=== PATIENT | female | born 1970 | race African-American/Black ===

== ENCOUNTER 2018-02-27 18:35 | Observation (INO) | payer BC, OTHER ==
[~2018-02-27 18:35] MED LIST: ISOVUE-370 76%-LOCM 1 ML ONE
[2018-02-27 19:05] LABS: #Eosinphils 0.1 thou/uL (0.0-0.7); #Lymphocytes 2.2 thou/uL (1.20-3.40); #Monocytes 0.3 thou/uL (0.11-0.59); #Neutrophils 2.5 thou/uL (1.40-6.50); %Basophils 0.7 % (0.0-1.0); %Eosinophils 1.8 % (0.0-10.0); %Lymphocytes 42.4 % (21.0-51.0); %Monocytes 6.5 % (0.0-10.0); %Neutrophils 48.6 % (42.0-75.0); Hemoglobin 13.6 g/dL (12.0-16.0); Mean Corpuscular HGB CONC 31.9 g/dL (32.0-36.0); Mean Corpuscular Hemoglobin 26.9 pg (27.0-31.0); Mean Corpuscular Volume 84.6 fl (81.0-99.0); Mean Platelet Volume 8.3 fL (7.4-10.4); Platelet Count 219 thou/uL (130-400); RBC Distribution Width 12.6 % (11.5-14.5); Red Blood Cell (RBC) Count 5.06 mill/uL (4.20-5.40); White Blood Cell (WBC) Count 5.1 thou/uL (4.8-10.8)
[2018-02-27 19:26] LABS: ALT (SGPT) 46 U/L (8-55); AST (SGOT) 25 U/L (5-34); Albumin 4.1 g/dL (3.5-5.0); Alkaline Phosphatase 182 U/L (40-150); Anion Gap 13 mmol/L (10-20); BUN (Urea Nitrogen) 10 mg/dL (7.0-18.7); Bilirubin, Total 0.2 mg/dL (0.2-1.2); CK (CPK) 145 U/L (29-168); Calc. Creatinine Clearance 0 mL/min (70-130); Calcium 9.5 mg/dL (7.8-10.44); Carbon Dioxide 25 mmol/L (22-29); Chloride 103 mmol/L (98-107); Estimated GFR-MDRD 64; Globulin 3.6 g/dL (2.4-3.5); Glucose 359 mg/dL (70-105); Protein, Total 7.7 g/dL (6.0-8.3); Sodium 137 mmol/L (136-145)
[2018-02-27 19:30] LABS: CKMB 0.7 ng/mL (0-6.6); Troponin I Less than 0.010 ng/mL (< 0.028)
[2018-02-27] MEDS ORDERED: Clopidogrel Bisulfate 75 MG TAB ONE (21:03)
[2018-02-27] MEDS ORDERED: Nitroglycerin 2% Ointment 1 INCH/1 GM Packet ONE (21:03)
--- NOTE | 2018-02-27 23:08 | CT ---
CT ANGIOGRAM THORAX WITH IV CONTRAST AND 3D RECONSTRUCTION 02/27/18 HISTORY: Sudden onset of chest pain with nausea and shortness of breath. COMPARISON: 12/07/16. FINDINGS: No filling defects are seen in the pulmonary arteries to suggest a pulmonary embolus. The thoracic ao rta is normal in caliber without evidence of an aortic dissection. The heart is mildly enlarged. There is no evidence of lymphadenopathy. There is a subcentimeter hypodense nodule seen in the left lobe of the thyroid gland. This is also se en on the prior study, less well delineated. However, this was better visualized on study of 04/30/15. There are ground glass densities in the lungs bilaterally, but this exam is obtained in expiratory ph ase of imaging and this is probably related to atelectasis. There is a stable subcentimeter pulmonary nodule in the right lower lobe. No additional pulmonary nodule or mass is seen and there is no pleur al effusion. Present. There is fatty infiltration of the liver, also seen on prior exam. The craniocaudal dimensions of the liver is not imaged. Post cholecystectomy changes are present. IMPRESSION: 1. No CT evidence of a pulmonary embolus. 2. Mild cardiomegaly. 3. Fatty infiltration of the liver. 4. Stable pulmonary nodule right lower lobe. 5. Stable hypodense nodule left lobe of the thyroid gland incompletely imaged on this exam. This nodule is less well delineated on the prior study. Nonemergent thyroid ultrasound may be helpful for further evaluation. POS: PB
[2018-02-27] MEDS ORDERED: Acetaminophen 500 MG TAB ONE (23:29)
[2018-02-28 00:19] LABS: Troponin I Less than 0.010 ng/mL (< 0.028)
[2018-02-28 00:38] VITALS: BMI 40.2
[2018-02-28] MEDS ORDERED: Ondansetron ODT 4 MG TAB SL PRN (00:53)
[2018-02-28] MEDS ORDERED: Ondansetron HCl/PF 4 MG/2 ML Vial IVP PRN (00:53)
[2018-02-28 03:18] LABS: Troponin I 0.018 ng/mL (< 0.028)
[2018-02-28 08:35] VITALS: BP 118/79; TEMP 98.4
--- NOTE | 2018-03-01 11:27 | HP ---
PRIMARY CARE PHYSICIAN: Dr. Kam Edmond. REASON FOR SEEKING MEDICAL ATTENTION: Chest pain. HISTORY OF PRESENT ILLNESS: Ms. Cramer is a pleasant 47-year-old female that has a history of diabet es mellitus and paroxysmal atrial fibrillation. She says that on yesterday afternoon, she was at wor k and just sitting, not doing anything strenuous when she suddenly felt a heavy sensation in her ches t. She says it was associated with some shortness of breath. She felt like she could not breathe an d she says she rated the pain about 8.5/10. It lasted about 3-4 minutes and then went away. It was coming and going and she says she also felt that her left arm was hurting. She felt that her arm was a little bit numb and was nauseated and she initially said to the ER physician that she vomited, but she tells me she did not relieve vomit, it came again later on that evening and she says that she ju st did not feel right in her chest and wanted to come in to see what was "going on." Currently, she is chest pain free. She was seen in the emergency room, she had a CT angiogram of the chest, which w as negative. She has also had 3 sets of cardiac enzymes, which are negative and was placed in observ ation. REVIEW OF SYSTEMS: CONSTITUTIONAL: There has been no fevers, no chills, no night sweats, no weight loss. HEENT: No headaches, no dizziness, no visual changes, no sore throat, no rhinorrhea, neck pain, no a denopathy. PULMONARY: No hemoptysis, no cough, no wheezing. CARDIOVASCULAR: As at the history of present illness. GASTROINTESTINAL: No abdominal pain, no nausea. She denies any reflux symptoms, no melena, no hemat emesis. GENITOURINARY: No urinary frequency, hematuria, no hesitancy. NEUROLOGIC: No focal weakness, numbness, no seizures. PSYCHIATRIC: No symptoms of anxiety or depression. SKIN AND INTEGUMENT: No skin changes. No rash. PAST MEDICAL HISTORY: Significant for obesity, diabetes mellitus. She denies hypertension, although it is in her records and has history of paroxysmal atrial fibrillation. PAST SURGICAL HISTORY: She has had left foot surgery, cholecystectomy, and appendectomy. ALLERGIES: HYDROCODONE, REGLAN, PENICILLIN, COMPAZINE, TRAMADOL, and ZOFRAN. SOCIAL HISTORY: She is . She has 3 children. She is a nonsmoker, nondrinker. FAMILY HISTORY: Significant for congestive heart failure, diabetes, and hypercholesterolemia. MEDICATIONS: Include Lasix 20 mg twice a day, Nexium 40 mg daily, diltiazem CD 240 mg twice a day, a spirin 81 mg daily, daily, potassium chloride 10 mEq daily, Nitrostat 0.4 sublingual p.r.n., J anumet 1 tablet twice a day and that is 50/500, metoprolol 100 mg twice daily, isosorbide mononitrate 10 mg daily, ProAir 2 puffs q.6 hours as needed, glimepiride 1 mg q. day, venlafaxine 75 mg daily, Z ocor 20 mg daily, and Protonix 40 mg a day. PHYSICAL EXAMINATION: GENERAL: She is well-developed and well-nourished. She is in no acute distress. VITAL SIGNS: Her blood pressure was 110/67, heart rate 78, respiratory rate of 18, temperature 97.8, and O2 sat was 95% on room air. HEENT: Pupils are equal, round, and reactive. Extraocular muscles are intact. Her sclerae are anic teric. Her throat, there is no erythema, no exudate. Uvula is midline. NECK: There is no adenopathy, no bruits. LUNGS: Clear to auscultation. There were no wheezing, no rales, no rhonchi. CARDIOVASCULAR: She had a normal S1, S2. I did not appreciate an S3 or S4. No murmurs, clicks, no rubs. ABDOMEN: Obese, it is soft. There was some mild diffuse tenderness. There is no rebound, no guardi ng, and could not appreciate any organomegaly. EXTREMITIES: There is no clubbing, cyanosis, no edema. NEUROLOGICALLY: Her exam is nonfocal. Her cranial nerves II-XII are intact. Muscle strength is 5/5 in both her upper and lower extremities. SIGNIFICANT LABORATORY RESULTS: Sodium was 137, potassium 4.0, chloride is 103, CO2 is 25, BUN of 10 , creatinine 1.1, glucose is 359, alkaline phosphatase is 182. Troponins were less than 0.010, lipas e is 96. White blood cell count 5.1, hemoglobin 13.6, hematocrit is 42.8, platelet count is 219. Sh vic had an EKG, which was sinus rhythm. She had a Q-wave inferiorly in leads III and AVF; however, it is unchanged from prior EKG dated 12/07/2016 and again she had a CT angiogram of the chest, which was negative for PE. ASSESSMENT AND PLAN: This is a pleasant 47-year-old female that presents to the emergency room with atypical chest pain. She has had 3 sets of troponins, which are negative. A CT angio which was nega tive. In review of her medical records, it appears that she has been to the hospital on numerous occ asions for chest pain in the past, dating back as far as 3 years ago in 2014. At that time, she had a nuclear stress test, which was negative. The following year, she had a cardiac catheterization by Dr. Concepcion, which was negative for any coronary artery disease. Following that, she had a pulmonary perfusion test in 01/2016, which was also negative. She had a recent echocardiogram in November 2016, which was essentially normal. Given that she has had an extensive workup in the past. I do not fee l that any additional workup is necessary at this time and it is unlikely that her chest pain is rela tawny to coronary artery disease. Also, pulmonary embolism has been ruled out as well. The patient lo oks relatively stable. She is sitting up in bed and she is basically in no acute distress. Her cee l signs are all stable. I discussed with her that they are likely alternative explanations for her c hest pain, possibly musculoskeletal in origin and she could have diabetic neuropathy or radiculopathy . However, these can be worked up in the outpatient basis and I have encouraged her to discuss this with her primary care physician. Therefore, we are going to go ahead and discharge the patient and t here is no need for any additional workup in the hospital and refer her to the care of her primary ca re physician.
== END 2018-02-28 11:25 | disposition home or self-care (01) ==
LOC: ERS 18:35 → 2NO 02-28 00:19
PROVIDERS: ADMIT Internal Medicine; ATTEND Internal Medicine
DX: R07.89 Other chest pain (principal); E11.9 Type 2 diabetes mellitus without complications; I48.0 Paroxysmal atrial fibrillation; Z79.82 Long term (current) use of aspirin; Z79.84 Long term (current) use of oral hypoglycemic drugs; Z79.899 Other long term (current) drug therapy; Z88.5 Allergy status to narcotic agent; Z88.0 Allergy status to penicillin; Z88.8 Allergy status to other drugs, medicaments and biological substances; Z90.49 Acquired absence of other specified parts of digestive tract; Z98.890 Other specified postprocedural states
CPT/HCPCS: 36415; 71275; 80053; 82550; 82553; 83690; 83880; 84484; 85025; 93005; 94760; G0378

== ENCOUNTER 2019-07-24 20:52 | Observation (INO) | payer BC ==
--- NOTE | 2019-07-24 21:30 | RAD ---
PORTABLE CHEST ONE VIEW: 07/24/19 at 8:47 p.m. HISTORY: Chest pain. Atrial fibrillation. FINDINGS: Comparison is made with the exam of 12/07/16. The heart size is normal. No confluent areas of consolidation, pneumothoraces, salvador pulmonary edema or pleural effusions are seen. IMPRESSION: No acute process. POS: H
[2019-07-24 21:38] LABS: Hemoglobin 13.5 g/dL (12.0-16.0); Mean Corpuscular Volume 81.9 fL (78.0-98.0); Mean Platelet Volume 8.6 fL (7.4-10.4); Platelet Count 222 thou/uL (130-400); RBC Distribution Width 12.4 % (11.5-14.5); Red Blood Cell (RBC) Count 5.01 mill/uL (4.20-5.40); White Blood Cell (WBC) Count 5.5 thou/uL (4.8-10.8)
[2019-07-24 21:54] LABS: Eosinophils 2 % (0-10); Lymphocytes 53 % (21-51); MDiff Complete? YES; Monocytes 4 % (0-10); Neutrophil 41 % (42-75)
[2019-07-24 21:58] LABS: ALT (SGPT) 43 U/L (8-55); AST (SGOT) 16 U/L (5-34); Alkaline Phosphatase 144 U/L (40-150); Anion Gap 13 mmol/L (10-20); BUN (Urea Nitrogen) 16 mg/dL (7.0-18.7); Bilirubin, Total 0.2 mg/dL (0.2-1.2); Calc. Creatinine Clearance 0 mL/min (70-130); Calcium 9.6 mg/dL (7.8-10.44); Carbon Dioxide 22 mmol/L (22-29); Chloride 103 mmol/L (98-107); Estimated GFR-MDRD 81; Globulin 3.1 g/dL (2.4-3.5); Glucose 373 mg/dL (70-105); Protein, Total 7.1 g/dL (6.0-8.3); Sodium 134 mmol/L (136-145)
[2019-07-24] MEDS ORDERED: Acetaminophen 500 MG TAB ONE (22:00)
[2019-07-24] MEDS ORDERED: Promethazine HCl 25 MG/ML VIAL ONE (22:17)
[2019-07-24] MEDS ORDERED: Insulin Regular 300 UNITS/3 ML VIAL ONE (22:36)
[2019-07-24] MEDS ORDERED: Aspirin Chewable 81 MG TAB ONE (22:36)
[2019-07-24 22:42] LABS: Bilirubin Negative (Negative); Blood, Urine Negative (Negative); Clarity Clear (Clear); Glucose, Urine (Dipstick) Greater than 1000 mg/dL (Negative); Leukocyte Negative Leu/uL (Negative); Nitrite Negative (Negative); Protein, Urine (Dipstick) Negative (Neg-Trace); Urobilinogen Normal mg/dL (Less than 2)
[2019-07-25 01:21] LABS: Troponin I Less than 0.010 ng/mL (< 0.028)
[2019-07-25] MEDS ORDERED: Dextrose 50% Abboject 50 ML SYRINGE SLOW IVP PRN (01:29)
[2019-07-25] MEDS ORDERED: Acetaminophen 325 MG TAB PO PRN (01:29)
[2019-07-25] MEDS ORDERED: hydrALAZINE 20 MG/ML VIAL SLOW IVP PRN (01:29)
[2019-07-25] MEDS ORDERED: HumaLOG 300 UNITS/3 ML VIAL SC PRN (01:29)
[2019-07-25] MEDS ORDERED: Dextrose 5% in Water 1,000 ML IV PRN (01:29)
[2019-07-25] MEDS: Nitroglycerin 0.4 MG TAB (25 Tab Bottle) PO PRN ×2 (02:26→02:33)
[2019-07-25] MEDS: Morphine 4 MG/ML VIAL SLOW IVP PRN ×2 (03:18→21:13)
--- NOTE | 2019-07-25 04:21 | HP ---
PRIMARY CARE PHYSICIAN: Dr. Vika Edmond in [place]. CHIEF COMPLAINT: Chest pain. HISTORY OF PRESENT ILLNESS: Ms. Cramer is a pleasant 48-year-old female who has a history of paroxysmal atrial fibrillation and diabetes mellitus. She says that she has been having problems with her heart racing off and on. She believes she is going "in and out" of atrial fibrillation. She says that it has been more frequent lately and in the last few days, she will have these episodes where her heart beats irregular for 3 to 4 hours at a time. During this time, she says she feels faint and she will have a heaviness in her chest. It feels like a weight is on her chest and it takes her breath away. She says that these are becoming more persistent and more frequent and this is the reason that she came to the emergency room. She also notes some nausea and vomiting along with these episodes. However, sometimes she will have the nausea and vomiting without it, but she attributes this to diabetes mellitus. In the ER, she was evaluated and found to be in sinus tachycardia. However, she is being placed in observation. The patient denies any leg pain, but she does have some tingling. No leg swelling. No PND. No orthopnea. REVIEW OF SYSTEMS: CONSTITUTIONAL: There is no fevers or chills. No night sweats. No weight loss. HEENT: No headaches. No dizziness. No visual changes. No sore throat or rhinorrhea. No neck pain. No adenopathy. PULMONARY: No hemoptysis. No cough. No wheezing. CARDIOVASCULAR: As the History of Present Illness. GASTROINTESTINAL: No abdominal pain, but she has had nausea and vomiting off and on. No hematemesis. No melena. GENITOURINARY: No urinary frequency or hematuria. No hesitancy. MUSCULOSKELETAL: She complains of some tingling in her feet, but no salvador pain. No numbness. No joint pains or effusions. NEUROLOGIC: No focal weakness. No seizures. SKIN AND INTEGUMENT: No skin changes. No rash. PSYCHIATRIC: No symptoms of anxiety or depression. PAST MEDICAL HISTORY: Significant for diabetes mellitus, obesity, paroxysmal atrial fibrillation, and neuropathy. PAST SURGICAL HISTORY: She has had a cholecystectomy, appendectomy, foot surgery, and bilateral tubal ligation. ALLERGIES: TO PENICILLIN, HYDROCODONE, REGLAN, COMPAZINE, TRAMADOL, AND ZOFRAN; ALL OF WHICH CAUSED HER EITHER ITCHING OR RASHES. SOCIAL HISTORY: She is . She has 3 children. She is a nonsmoker. She denies any alcohol use. FAMILY HISTORY: Significant for diabetes mellitus as well as congestive heart failure. MEDICATIONS: Include; 1. Simvastatin 20 mg daily. 2. Aspirin 81 mg daily. 3. Nitrostat 0.4 sublingual. 4. Cardizem 120 mg daily. 5. Metoprolol extended release 100 mg daily. 6. Ranexa 1000 mg twice a day. PHYSICAL EXAMINATION: GENERAL: She is alert and oriented. She appears to be in no acute distress. She is well developed and well nourished. VITAL SIGNS: Blood pressure is 125/86, heart rate 101, respiratory rate of 20, and temperature is 99.1. HEENT: Her pupils are equal, round, and reactive to light. Extraocular muscles are intact. Her sclerae are anicteric. Throat, no erythema, no exudates. NECK: No adenopathy. No bruits. LUNGS: Clear to auscultation. There is no wheezing, no rales, no rhonchi. CARDIOVASCULAR: She has normal S1, S2. There is no S3 or S4. No murmurs or clicks, no rubs. ABDOMEN: Obese, it is soft, it is nontender, and nondistended. Positive for bowel sounds. There is no rebound, no guarding, no organomegaly. EXTREMITIES: There is no clubbing or cyanosis. No edema. No calf tenderness. No joint effusions. NEUROLOGIC: Cranial nerves 2 through 12 are intact. Muscle strength is 5/5 in both upper and lower extremities. SKIN AND INTEGUMENT: No skin changes. No rashes. Dorsalis pedis pulses are palpable, but little bit diminished on the left as compared to the right. Again, no skin lesions. LABORATORY DATA AND IMAGING: Her chest x-ray; there were no infiltrates, no effusions. Heart size appears normal. This is by my reading. EKG is sinus rhythm. She has some Q-waves in III and aVF, and it is sinus tachycardia, heart rate is about 106, also by my reading. Sodium is 134, potassium four, chloride is 103, CO2 is 22, BUN of 16, creatinine 0.91, glucose is 373. White blood cell count 5.5, hemoglobin 13.5, hematocrit is 41, platelet count is 222. ASSESSMENT: 1. This is a pleasant 48-year-old female who has a history of paroxysmal atrial fibrillation, who says that she believes she has been going in and out of atrial fibrillation more frequently and is symptomatic with this. She is not on anticoagulation and she is really not sure why. She has diabetes and with her gender, this would give her a CHADS-VASc score of 2 in which case she would be a candidate for anticoagulation. 2. With regard to the atrial fibrillation, currently she is converted back to sinus. We will place her on Lovenox full dose at least through the night. Consult Cardiology. Get an echocardiogram and further recommendations will be based on Cardiology recommendations. 3. Diabetes mellitus. We will need to reconcile and continue her home medications as well as a sliding scale insulin and she will be placed on gastrointestinal prophylaxis due to the anticoagulation. Job ID: [id number]
[2019-07-25 04:24] LABS: Anion Gap 13 mmol/L (10-20); BUN (Urea Nitrogen) 16 mg/dL (7.0-18.7); Calc. Creatinine Clearance 150 mL/min (70-130); Calcium 8.8 mg/dL (7.8-10.44); Carbon Dioxide 22 mmol/L (22-29); Cardiac Risk 6.5 (Less than 4.5); Chloride 104 mmol/L (98-107); Cholesterol 194 mg/dl (< 200 Desired); Estimated GFR-MDRD Greater than 90; Glucose 305 mg/dL (70-105); HDL Cholesterol 30 mg/dL (>60 Neg Risk); LDL Cholesterol, Calculated 119 mg/dL; Sodium 135 mmol/L (136-145); Triglycerides 224 mg/dL (Less than 150)
[2019-07-25 04:26] LABS: Troponin I 0.011 ng/mL (< 0.028)
[2019-07-25 04:37] LABS: Band 1 % (5-11); Eosinophils 1 % (0-10); Hemoglobin 12.7 g/dL (12.0-16.0); Lymphocytes 52 % (21-51); MDiff Complete? YES; Mean Corpuscular HGB CONC 32.8 g/dL (32.0-36.0); Mean Corpuscular Hemoglobin 27.1 pg (27.0-31.0); Mean Corpuscular Volume 82.8 fL (78.0-98.0); Mean Platelet Volume 8.4 fL (7.4-10.4); Monocytes 8 % (0-10); Neutrophil 37 % (42-75); Platelet Count 193 thou/uL (130-400); Platelet Morphology Comment Appears Adequate; RBC Distribution Width 12.5 % (11.5-14.5); Reactive Lymphocytes 1 % (0-10); Red Blood Cell (RBC) Count 4.67 mill/uL (4.20-5.40); White Blood Cell (WBC) Count 5.7 thou/uL (4.8-10.8)
[2019-07-25] MEDS: Nitroglycerin 2% Ointment 1 INCH/1 GM Packet TOP SCH ×2 (05:18→15:18)
[2019-07-25 05:34] LABS: Free T4 (Free Thyroxine) 0.93 ng/dL (0.70-1.48)
[2019-07-25] MEDS: HumaLOG 300 UNITS/3 ML VIAL SC PRN ×2 (06:04→19:33)
[2019-07-25] MEDS ORDERED: Regadenoson 0.4 MG/5 ML SYRINGE ONE (07:20)
[2019-07-25] MEDS: Aspirin 81 mg Enteric Coated Tablet PO SCH (09:31)
[2019-07-25] MEDS: Simvastatin 20 MG TAB PO SCH (09:32)
[2019-07-25] MEDS: Famotidine 20 MG TAB PO SCH ×2 (09:32→21:04)
[2019-07-25] MEDS: Enoxaparin Sodium 100 MG/ML SYRINGE SC SCH ×2 (09:32→21:05)
[2019-07-25] MEDS: Potassium Chloride 10 MEQ TAB PO SCH (09:32)
[2019-07-25] MEDS: Furosemide 20 MG TAB PO SCH ×2 (09:32→21:04)
--- NOTE | 2019-07-25 11:55 | PDOC.HOSPP ---
- Subjective Encounter Date: 07/25/19 Encounter Time: 09:00 Subjective: no current chest pain or palp is ambulating in room - Objective Vital Signs & Weight: Vital Signs (12 hours) Temp Pulse Resp BP BP Pulse Ox 07/25/19 11:27 86 129/76 07/25/19 11:00 98.0 F 82 16 95/60 95 07/25/19 07:55 97.9 F 82 16 110/55 L 95 07/25/19 03:48 98.5 F 97 15 117/58 L 95 07/25/19 02:38 112/67 07/25/19 02:33 112/65 07/25/19 02:26 119/67 07/25/19 01:29 95 07/25/19 01:18 98.8 F 88 18 114/62 98 Weight Weight 225 lb 12.8 oz Result Diagrams: 07/25/19 03:49 07/25/19 03:49 Additional Labs: Accuchecks 07/25/19 07/25/19 07/25/19 10:31 05:53 00:56 POC Glucose 253 H 341 H 290 H Hospitalist ROS - Medication Medications: Active Medications Generic Name Dose Route Start Last Admin Trade Name Freq PRN Reason Stop Dose Admin Acetaminophen 650 mg 07/25/19 01:29 07/25/19 02:35 Tylenol PO 650 mg Q4H PRN Administration Headache/Fever/Mild Pain (1-3) Aspirin 81 mg 07/25/19 09:00 07/25/19 09:31 Ecotrin PO 81 mg DAILY JUANJO Administration Enoxaparin Sodium 100 mg 07/25/19 09:00 07/25/19 09:32 Lovenox SC 100 mg 0900,2100 JUANJO Administration Famotidine 20 mg 07/25/19 09:00 07/25/19 09:32 Pepcid PO 20 mg BID JUANJO Administration Furosemide 20 mg 07/25/19 09:00 07/25/19 09:32 Lasix PO 20 mg BID JUANJO Administration Insulin Human Lispro 0 units 07/25/19 01:29 07/25/19 06:04 Humalog SC 8 unit .MODERATE SLIDING SC PRN Administration Moderate Correctional Scale Morphine Sulfate 4 mg 07/25/19 03:01 07/25/19 03:18 Morphine SLOW IVP 4 mg Q4H PRN Administration Severe Pain (6-10) Nitroglycerin 0.5 inch 07/25/19 06:00 07/25/19 05:18 Nitro-Bid 2% Ointment TOP Not Given Q8HR [facility] Nitroglycerin 0.4 mg 07/25/19 01:29 07/25/19 02:33 Nitrostat PO 1 tab Q5MIN PRN Administration Chest Pain Potassium Chloride 10 meq 07/25/19 09:00 07/25/19 09:32 Klor-Con 10 PO 10 meq DAILY JUANJO Administration Simvastatin 20 mg 07/25/19 09:00 07/25/19 09:32 Zocor PO 20 mg DAILY JUANJO Administration - Exam General Appearance: NAD, awake alert Eye: PERRL, anicteric sclera ENT: no oropharyngeal lesions, moist mucosa Neck: supple, no JVD Heart: RRR, no murmur Respiratory: no wheezes, no rales Gastrointestinal: soft, non-tender, non-distended, normal bowel sounds Extremities: no clubbing, no edema Neurological: CN's grossly intact, no focal deficits Psychiatric: A&O x 3 Hosp A/P (1) Palpitations Code(s): R00.2 - PALPITATIONS Status: Acute (2) Chest pain Code(s): R07.9 - CHEST PAIN, UNSPECIFIED Status: Acute Qualifiers: Chest pain type: unspecified Qualified Code(s): R07.9 - Chest pain, unspecified (3) DM type 2 (diabetes mellitus, type 2) Status: Chronic Qualifiers: Diabetes mellitus mcc insulin use: with mcc use (4) Hypertension Code(s): I10 - ESSENTIAL (PRIMARY) HYPERTENSION Status: Chronic Qualifiers: Hypertension type: essential hypertension Qualified Code(s): I10 - Essential (primary) hypertension (5) Obesity Code(s): E66.9 - OBESITY, UNSPECIFIED Status: Chronic Qualifiers: Obesity classification: adult class 2 (BMI 35 - 39.9) Body mass index: BMI 38.0-38.9 (6) Paroxysmal a-fib Code(s): I48.0 - PAROXYSMAL ATRIAL FIBRILLATION Status: Chronic - Plan is in sinus rhythm all through here has subjective feeling of palpitations likely will need event monitor for dc plan continue card cd bid, lopressor bid, lasix, ranexa, zocor and isordil is on lovenox full dose, may switch to noac if ok with cardio dc plan per cardio adv.
[2019-07-25] MEDS: Isosorbide Dinitrate 5 MG TAB PO SCH (11:57)
[2019-07-25] MEDS: Metoprolol Tartrate 50 MG TAB PO SCH ×2 (11:57→21:04)
[2019-07-25] MEDS ORDERED: Promethazine HCl 25 MG/ML VIAL SLOW IVP SCH (12:30)
[2019-07-25] MEDS: Morphine 2 MG/ML SYRINGE SLOW IVP PRN (12:37)
[2019-07-25] MEDS ORDERED: Promethazine HCl 12.5 MG in Sodium Chloride 0.9% 50 ML IVPB SCH (12:45)
--- NOTE | 2019-07-25 13:18 | CON ---
DATE OF CONSULTATION: HISTORY OF PRESENT ILLNESS: The patient is a 48-year-old woman with a history of apparent atrial fibrillation, who presented with palpitations and chest discomfort. The patient was seen approximately 3 years ago with chest pain. She underwent a cardiac catheterization,which revealed normal left ventricular systolic function with normal coronary arteries. The patient has been followed primarily by a slat basket maker helper in [place]. She has apparently been diagnosed with atrial fibrillation. She was being treated with aspirin and metoprolol. The patient states she continues to have frequent episodes of atrial fibrillation. She reports with these palpitations that she develops midsternal chest discomfort. The patient presented to the hospital with recurrent chest pain. She was not in atrial fibrillation. She felt a severe tightness in the middle of her chest. The patient states that these episodes are often associated with nausea. PAST MEDICAL HISTORY: 1. Hypertension. 2. Diabetes mellitus. 3. Atrial fibrillation. 4. Obesity. PAST SURGICAL HISTORY: Foot surgery, cholecystectomy, hysterectomy, and appendectomy. SOCIAL HISTORY: Nonsmoker. FAMILY HISTORY: Positive family history of heart disease. ALLERGIES: HYDROCODONE, KETOROLAC, REGLAN, ZOFRAN, AND METOCLOPRAMIDE. MEDICATIONS: Include, 1. Zocor 20 at bedtime. 2. Ranexa 500 b.i.d. 3. KCl 10 daily. 4. Metoprolol 50 b.i.d. 5. Imdur 10 q.a.m. 6. Nexium 40 daily. 7. Aspirin 81 daily. REVIEW OF SYSTEMS: Ten-point systems otherwise unremarkable. PHYSICAL EXAMINATION: GENERAL: This is an obese woman, in no acute distress. VITAL SIGNS: Blood pressure 95/60. NECK: No jugular venous distention. LUNGS: Clear to auscultation. HEART: Regular rate and rhythm. Normal S1, S2. ABDOMEN: Nondistended. EXTREMITIES: Showed no edema. VASCULAR: Radial pulses 2+. LABORATORY DATA: White blood cell count 5.7, hemoglobin 12.7, hematocrit 38.7, platelets 193. Sodium 135, potassium 4.0, chloride 104, bicarbonate 22, BUN 16, creatinine 0.76. Troponin was 305. IMAGING STUDIES: Her EKG revealed normal sinus rhythm with poor R-wave progression and Q-wave suggestive of possible previous inferior infarct. IMPRESSION: 1. Chest pain. 2. History of paroxysmal atrial fibrillation. 3. Hypertension. 4. Diabetes. 5. Obesity. This patient presents with recurrent chest discomfort. From a cardiac standpoint, I would recommend a repeat stress test to make sure there is no evidence of ischemia. She had a cardiac catheterization a few years ago, which revealed normal coronary arteries. The patient appears to have symptomatic atrial fibrillation. Would obtain records with documentation of this rhythm. The patient has a CHADS-VASc score of 2, so her slat basket maker helper should consider placing her on a NOAC instead of aspirin. The patient also would probably benefit from antiarrhythmic therapy with her very symptomatic atrial fibrillation or possible ablation. PLAN: 1. Proceed with adenosine Cardiolite stress test. 2. Obtain records from her slat basket maker helper. Job ID: [id number] MTDD
--- NOTE | 2019-07-25 18:13 | NM ---
CARDIAC SPECT: History: 48-year-old female with chest pain, atrial fabulation, CHF. Pulmonary artery disease. Technique: A myocardial perfusion scan was performed following the intravenous administration of 28 m Ci Technetium 99M Sestamibi. Exercise stress was monitored and interpreted by Dr. Vaz. FINDINGS: Homogenous distribution was seen in the myocardial segments on the post stress images. LVEF: 69% IMPRESSION: Normal post stress myocardial perfusion scan. POS: PB
[2019-07-26] MEDS: Nitroglycerin 2% Ointment 1 INCH/1 GM Packet TOP SCH ×2 (04:05→06:40)
[2019-07-26] MEDS: HumaLOG 300 UNITS/3 ML VIAL SC PRN ×2 (05:27→12:31)
[2019-07-26] MEDS ORDERED: Furosemide 20 MG TAB PO SCH (09:00)
[2019-07-26] MEDS: Aspirin 81 mg Enteric Coated Tablet PO SCH (09:38)
[2019-07-26] MEDS: Metoprolol Tartrate 50 MG TAB PO SCH (09:39)
[2019-07-26] MEDS: Isosorbide Dinitrate 5 MG TAB PO SCH (09:39)
[2019-07-26] MEDS: Famotidine 20 MG TAB PO SCH (09:39)
[2019-07-26] MEDS: Enoxaparin Sodium 100 MG/ML SYRINGE SC SCH (09:39)
[2019-07-26] MEDS: Simvastatin 20 MG TAB PO SCH (09:40)
[2019-07-26] MEDS: Potassium Chloride 10 MEQ TAB PO SCH (09:40)
[2019-07-26] MEDS: Morphine 2 MG/ML SYRINGE SLOW IVP PRN (11:02)
[2019-07-26 11:08] VITALS: BP 108/62; TEMP 98.3
--- NOTE | 2019-07-26 12:29 | PDOC.HOSPP ---
- Subjective Encounter Date: 07/26/19 Encounter Time: 07:30 Subjective: no chest pain or sob No c/o palpitations now - Objective Vital Signs & Weight: Vital Signs (12 hours) Temp Pulse Resp BP BP Pulse Ox 07/26/19 11:07 98.3 F 74 18 108/62 96 07/26/19 08:00 98.5 F 81 16 103/69 96 07/26/19 05:28 76 18 103/69 95 07/26/19 01:29 95 07/26/19 01:00 95 18 123/65 93 L Weight Weight 225 lb 12.8 oz I&O: 07/25/19 07/26/19 07/27/19 06:59 06:59 06:59 Intake Total 961 Output Total 1200 Balance -239 Result Diagrams: 07/25/19 03:49 07/25/19 03:49 Additional Labs: Accuchecks 07/26/19 07/26/19 07/25/19 10:58 05:28 20:09 POC Glucose 328 H 380 H 273 H 07/25/19 16:45 POC Glucose 271 H Hospitalist ROS - Medication Medications: Active Medications Generic Name Dose Route Start Last Admin Trade Name Freq PRN Reason Stop Dose Admin Acetaminophen 650 mg 07/25/19 01:29 07/25/19 02:35 Tylenol PO 650 mg Q4H PRN Administration Headache/Fever/Mild Pain (1-3) Aspirin 81 mg 07/25/19 09:00 07/26/19 09:38 Ecotrin PO 81 mg DAILY JUANJO Administration Diltiazem HCl 240 mg 07/25/19 09:00 07/26/19 09:38 Cardizem Cd PO 240 mg BID JUANJO Administration Enoxaparin Sodium 100 mg 07/25/19 09:00 07/26/19 09:39 Lovenox SC 100 mg 0900,2100 JUANJO Administration Famotidine 20 mg 07/25/19 09:00 07/26/19 09:39 Pepcid PO 20 mg BID JUANJO Administration Furosemide 20 mg 07/26/19 09:00 07/26/19 09:39 Lasix PO 20 mg 0900,1400 JUANJO Administration Insulin Human Lispro 0 units 07/25/19 01:29 07/26/19 05:27 Humalog SC 10 unit .MODERATE SLIDING SC PRN Administration Moderate Correctional Scale Insulin Human Lispro 0 units 07/25/19 01:29 07/25/19 21:05 Humalog SC 3 unit .BEDTIME SLIDING SC PRN Administration Bedtime Correctional Scale Isosorbide Dinitrate 10 mg 07/25/19 09:00 07/26/19 09:39 Isordil PO 10 mg DAILY JUANJO Administration Metoprolol Tartrate 50 mg 07/25/19 09:00 07/26/19 09:39 Lopressor PO 50 mg BID JUANJO Administration Morphine Sulfate 2 mg 07/25/19 03:01 07/26/19 11:02 Morphine SLOW IVP 2 mg Q4H PRN Administration Moderate Pain (4-6) Morphine Sulfate 4 mg 07/25/19 03:01 07/25/19 21:13 Morphine SLOW IVP 4 mg Q4H PRN Administration Severe Pain (6-10) Nitroglycerin 0.5 inch 07/25/19 06:00 07/26/19 06:40 Nitro-Bid 2% Ointment TOP Not Given Q8HR [facility] Nitroglycerin 0.4 mg 07/25/19 01:29 07/25/19 02:33 Nitrostat PO 1 tab Q5MIN PRN Administration Chest Pain Potassium Chloride 10 meq 07/25/19 09:00 07/26/19 09:40 Klor-Con 10 PO 10 meq DAILY [facility] Administration Ranolazine 500 mg 07/25/19 09:00 07/26/19 09:40 Ranexa PO 500 mg BID JUANJO Administration Simvastatin 20 mg 07/25/19 09:00 07/26/19 09:40 Zocor PO 20 mg DAILY JUANJO Administration - Exam General Appearance: NAD, awake alert Eye: PERRL, anicteric sclera ENT: no oropharyngeal lesions, moist mucosa Neck: supple, no JVD Heart: RRR, no murmur Respiratory: no wheezes, no rales Gastrointestinal: soft, non-tender, normal bowel sounds Extremities: no cyanosis, no edema Neurological: CN's grossly intact, no focal deficits Psychiatric: normal affect, A&O x 3 Hosp A/P (1) Palpitations Code(s): R00.2 - PALPITATIONS Status: Resolved (2) Chest pain Code(s): R07.9 - CHEST PAIN, UNSPECIFIED Status: Resolved Qualifiers: Chest pain type: unspecified Qualified Code(s): R07.9 - Chest pain, unspecified (3) DM type 2 (diabetes mellitus, type 2) Status: Chronic Qualifiers: Diabetes mellitus terminal manager insulin use: with [facility] use (4) Hypertension Code(s): I10 - ESSENTIAL (PRIMARY) HYPERTENSION Status: Chronic Qualifiers: Hypertension type: essential hypertension Qualified Code(s): I10 - Essential (primary) hypertension (5) Obesity Code(s): E66.9 - OBESITY, UNSPECIFIED Status: Chronic Qualifiers: Obesity classification: adult class 2 (BMI 35 - 39.9) Body mass index: BMI 38.0-38.9 (6) Paroxysmal a-fib Code(s): I48.0 - PAROXYSMAL ATRIAL FIBRILLATION Status: Chronic - Plan is in sinus rhythm all through here had subjective feeling of palpitations at home. likely will need event monitor for dc plan continue card cd bid, lopressor bid, lasix, ranexa, zocor and isordil is on lovenox full dose, may switch to noac if ok with cardio dc plan per cardio adv.
[2019-07-26] MEDS ORDERED: Apixaban 5 MG TAB PO SCH (21:00)
--- NOTE | 2019-07-27 07:25 | DIS ---
DATE OF ADMISSION: 07/24/2019 DATE OF DISCHARGE: 07/26/2019 DISCHARGE DISPOSITION: To home. PRIMARY DISCHARGE DIAGNOSIS: Palpitations with underlying history of paroxysmal atrial fibrillation, chest pain, which is noncardiac. SECONDARY DISCHARGE DIAGNOSES: 1. Obesity. 2. Hypertension. 3. Diabetes mellitus type 2. PROCEDURES DONE DURING HOSPITALIZATION: Chest x-ray done showed no acute process. Nuclear stress test done showed homogeneous distribution seen in the myocardial segments on the post-stress images. Perfusion scan was normal. Ejection fraction of 69%. Echo with 2D Doppler showed EF of 50% to 55%. Urine culture, no growth. H and H of 12 and 38, platelet count 193, white count of 5.7, and MCV is 82. BUN 16, creatinine 0.7. Total cholesterol 194, triglycerides 224, LDL 119, and HDL 30. Free T4 of 0.93. TSH 1.02. Troponin x3 negative. DISCHARGE MEDICATIONS: 1. Aspirin 81 mg p.o. daily. 2. Eliquis 5 mg p.o. twice daily. 3. Nexium 40 mg p.o. daily. 4. Cardizem CD 240 mg twice daily. 5. Lasix 20 mg twice daily. 6. Humalog 8 units subcu 3 times daily. 7. Insulin glargine with lixisenatide 25 units subcu q.a.m. 8. Isosorbide mononitrate 10 mg daily. 9. Lopressor 50 mg twice daily. 10. Potassium chloride 10 mEq p.o. daily. 11. Ranexa 500 mg p.o. twice daily extended release. 12. Zocor 20 mg p.o. daily. ALLERGIES: ALLERGIC TO HYDROCODONE, KETORALAC, REGLAN, ZOFRAN, PENICILLIN, COMPAZINE, AND ULTRAM. INPATIENT CONSULT: Dr. Vaz for Cardiology. DISCHARGE PLAN: The patient to follow up with her traffic warehouse supervisor in [place] in 1 week. She also needs to follow up with her primary care physician in 1 week. BRIEF COURSE DURING HOSPITALIZATION: The patient initially came into ER with complaints of chest pain and palpitations. She has known history of paroxysmal atrial fibrillation. She was essentially placed under observation on telemetry. Three sets of troponin were negative. Nuclear stress test was negative for any reversible ischemia. All through her stay, the patient was in sinus rhythm. Her medications were continued here and she was also on full-dose Lovenox, which has been transitioned to Eliquis. Please note, the patient did not have any evidence of AFib here, although the patient states she has history of the same. She likely will need an event monitor to see if she has any recurrent paroxysmal AFib with subjective feeling of palpitations. She has been strongly counseled to see her primary traffic warehouse supervisor in 1 week. The patient is not on any antiarrhythmics except for Lopressor and Cardizem CD for now. She was also given a prescription for Eliquis for a total duration of 30 days and the patient needs to see her primary traffic warehouse supervisor in order to continue Eliquis for confirmation of AFib. She is hemodynamically stable and has been cleared by Cardiology for discharge. Please note I have seen and examined patient on the day of discharge. Job ID: [id number] MTDD
--- NOTE | 2019-07-31 22:10 | EKG ---
Test Reason : Blood Pressure : / mmHG Vent. Rate : 106 BPM Atrial Rate : 106 BPM P-R Int : 146 ms QRS Dur : 078 ms QT Int : 320 ms P-R-T Axes : 049 010 -07 degrees QTc Int : 425 ms Sinus tachycardia Inferior infarct , age undetermined Cannot rule out Anterior infarct , age undetermined Abnormal ECG Confirmed by NICOLASA TA D.O. ([id number]), web content editor SALIMA MORENO ([id number]) on 07/31/2019 10:10:10 PM Referred By: Confirmed By:NICOLASA TA D.O.
== END 2019-07-26 16:06 | disposition home or self-care (01) ==
LOC: ERS 20:52 → 2SW 22:29
PROVIDERS: ADMIT Internal Medicine; ATTEND Internal Medicine
DX: R07.9 Chest pain, unspecified (principal); I48.0 Paroxysmal atrial fibrillation; I10 Essential (primary) hypertension; E11.40 Type 2 diabetes mellitus with diabetic neuropathy, unspecified; E66.9 Obesity, unspecified; Z68.38 Body mass index [BMI] 38.0-38.9, adult; Z79.82 Long term (current) use of aspirin; Z79.4 Long term (current) use of insulin; Z79.899 Other long term (current) drug therapy; Z88.0 Allergy status to penicillin; Z88.5 Allergy status to narcotic agent; Z88.8 Allergy status to other drugs, medicaments and biological substances
CPT/HCPCS: 36415; 36416; 71045; 78452; 80048; 80053; 80061; 81003; 83880; 84439; 84443; 84484; 85025; 87086; 93005; 93017; 93306; 94760; 96372; 96374; 96375; 96376; A9500; G0378; J1650; J1815; J2270; J2550; J2785

== ENCOUNTER 2021-04-13 10:00 | Inpatient (IN) | payer BC, SELFPAY ==
[2021-04-13 11:06] LABS: #Basophils 0.1 thou/uL (0.0-0.2); #Eosinphils 0.1 thou/uL (0.0-0.7); #Lymphocytes 1.9 thou/uL (1.20-3.40); #Monocytes 0.4 thou/uL (0.11-0.59); #Neutrophils 2.4 thou/uL (1.40-6.50); %Basophils 1.1 % (0.0-1.0); %Eosinophils 1.4 % (0.0-10.0); %Lymphocytes 39.5 % (21.0-51.0); %Monocytes 8.1 % (0.0-10.0); %Neutrophils 49.8 % (42.0-75.0); Hemoglobin 14.2 g/dL (12.0-16.0); Mean Corpuscular HGB CONC 32.6 g/dL (32.0-36.0); Mean Corpuscular Hemoglobin 27.3 pg (27.0-31.0); Mean Corpuscular Volume 83.5 fL (78.0-98.0); Platelet Count 201 thou/uL (130-400); RBC Distribution Width 12.3 % (11.5-14.5); Red Blood Cell (RBC) Count 5.19 mill/uL (4.20-5.40); White Blood Cell (WBC) Count 4.9 thou/uL (4.8-10.8)
[2021-04-13 11:15] LABS: ALT (SGPT) 53 U/L (8-55); AST (SGOT) 26 U/L (5-34); Albumin 3.8 g/dL (3.5-5.0); Alkaline Phosphatase 154 U/L (40-110); Anion Gap 14 mmol/L (10-20); BUN (Urea Nitrogen) 13 mg/dL (7.0-18.7); Bilirubin, Total 0.2 mg/dL (0.2-1.2); Calc. Creatinine Clearance 0 mL/min (70-130); Calcium 8.7 mg/dL (7.8-10.44); Carbon Dioxide 21 mmol/L (22-29); Chloride 102 mmol/L (98-107); Globulin 3.3 g/dL (2.4-3.5); Glucose 283 mg/dL (70-105); Lipase 78 U/L (8-78); Potassium 4.2 mmol/L (3.5-5.1); Protein, Total 7.1 g/dL (6.0-8.3); Sodium 133 mmol/L (136-145)
[2021-04-13] MEDS ORDERED: Aspirin Chewable 81 MG TAB ONE (11:34)
[2021-04-13] MEDS ORDERED: Lidocaine Viscous Sol 2% 15 ml UD Cup ONE (12:05)
[2021-04-13] MEDS ORDERED: Mag-Al 1200 mg/1200 mg/30 ML UDCUP ONE (12:05)
[2021-04-13] MEDS ORDERED: Iopamidol 370 76% 50 ML VIAL FS ONE (12:40)
[2021-04-13] MEDS ORDERED: Iopamidol-370 76% 500 ML 1 ML ONE (12:40)
[2021-04-13 13:27] LABS: BHCG - Serum Negative (NEGATIVE); Pregs Control Background? CLEAR/WHITE (CLR/WHITE); Pregs Control Bar Appear? YES (CONTROL BAR)
[2021-04-13 15:09] LABS: Troponin I Less than 0.010 ng/mL (< 0.028)
[2021-04-13 16:59] VITALS: BMI 39.3
[2021-04-13] MEDS ORDERED: Dextrose 5% in Water 1,000 ML IV PRN (17:29)
[2021-04-13] MEDS ORDERED: Dextrose 50% Abboject 50 ML SYRINGE SLOW IVP PRN (17:29)
[2021-04-13 18:55] LABS: Troponin I Less than 0.010 ng/mL (< 0.028)
[2021-04-13] MEDS: Lorazepam 2 MG/ML VIAL SLOW IVP PRN (19:02)
[2021-04-13] MEDS: Morphine 4 MG/ML VIAL SLOW IVP PRN ×2 (19:03→23:16)
[2021-04-13] MEDS: Nitroglycerin 0.4 MG TAB (25 Tab Bottle) SL PRN ×3 (20:21→20:45)
[2021-04-13] MEDS: Insulin Regular 300 UNITS/3 ML VIAL SC PRN (20:44)
[2021-04-13] MEDS ORDERED: Isosorbide Mononitrate 20 MG TAB PO SCH (21:45)
[2021-04-13] MEDS ORDERED: Metoprolol Tartrate 50 MG TAB PO SCH (21:45)
[2021-04-13] MEDS: Acetaminophen 325 MG TAB PO PRN (21:59)
[2021-04-13] MEDS ORDERED: Pregabalin 50 MG CAP PO SCH (22:45)
[2021-04-14 00:45] LABS: SARS-CoV-2 PCR by NAA Not Detected (NotDetected)
[2021-04-14] MEDS: Morphine 4 MG/ML VIAL SLOW IVP PRN (03:59)
[2021-04-14 05:45] LABS: Anion Gap 14 mmol/L (10-20); BUN (Urea Nitrogen) 13 mg/dL (7.0-18.7); Calc. Creatinine Clearance 141 mL/min (70-130); Calcium 9.1 mg/dL (7.8-10.44); Carbon Dioxide 21 mmol/L (22-29); Chloride 103 mmol/L (98-107); Glucose 331 mg/dL (70-105); Potassium 5.3 mmol/L (3.5-5.1); Sodium 133 mmol/L (136-145)
[2021-04-14] MEDS: Insulin Regular 300 UNITS/3 ML VIAL SC PRN ×4 (06:01→21:39)
[2021-04-14 07:09] LABS: Eosinophils 8 % (0-10); Hemoglobin 13.7 g/dL (12.0-16.0); Lymphocytes 44 % (21-51); MDiff Complete? YES; Mean Corpuscular HGB CONC 32.2 g/dL (32.0-36.0); Mean Corpuscular Hemoglobin 26.9 pg (27.0-31.0); Mean Corpuscular Volume 83.6 fL (78.0-98.0); Mean Platelet Volume 8.8 fL (7.4-10.4); Monocytes 13 % (0-10); Neutrophil 35 % (42-75); Platelet Count 213 thou/uL (130-400); RBC Distribution Width 12.4 % (11.5-14.5); Red Blood Cell (RBC) Count 5.09 mill/uL (4.20-5.40); White Blood Cell (WBC) Count 5.6 thou/uL (4.8-10.8)
[2021-04-14] MEDS: Pregabalin 50 MG CAP PO SCH ×3 (09:40→21:36)
[2021-04-14] MEDS: Furosemide 20 MG TAB PO SCH ×2 (09:41→15:06)
[2021-04-14] MEDS: Potassium Chloride 10 MEQ TAB PO SCH (09:42)
[2021-04-14] MEDS: Atorvastatin Calcium 10 MG TAB PO SCH (09:42)
[2021-04-14] MEDS: Aspirin Chewable 81 MG TAB PO SCH (09:43)
[2021-04-14] MEDS: Metoprolol Tartrate 50 MG TAB PO SCH ×2 (09:43→21:35)
[2021-04-14] MEDS: Promethazine HCl 12.5 MG in Sodium Chloride 0.9% 50 ML IVPB PRN (12:04)
[2021-04-14] MEDS: Acetaminophen 325 MG TAB PO PRN (21:35)
[2021-04-14] MEDS: Isosorbide Mononitrate 20 MG TAB PO SCH (21:35)
[2021-04-14] MEDS: Lantus 1000 UNITS/10 ML VIAL SC SCH (21:37)
[2021-04-14] MEDS: Sodium Chloride 0.9% 1,000 ML IV SCH (21:38)
[2021-04-15] MEDS: Promethazine HCl 12.5 MG in Sodium Chloride 0.9% 50 ML IVPB PRN ×2 (00:10→18:10)
[2021-04-15] MEDS: Sodium Chloride 0.9% 1,000 ML IV SCH (04:56)
[2021-04-15] MEDS: Insulin Regular 300 UNITS/3 ML VIAL SC PRN (05:51)
[2021-04-15] MEDS: Morphine 4 MG/ML VIAL SLOW IVP PRN ×2 (06:00→19:22)
[2021-04-15] MEDS ORDERED: HumaLOG 300 UNITS/3 ML VIAL SC PRN (08:16)
[2021-04-15] MEDS: Aspirin Chewable 81 MG TAB PO SCH (09:18)
[2021-04-15] MEDS: Atorvastatin Calcium 10 MG TAB PO SCH (09:18)
[2021-04-15] MEDS: Metoprolol Tartrate 50 MG TAB PO SCH ×2 (09:19→21:04)
[2021-04-15] MEDS: Potassium Chloride 10 MEQ TAB PO SCH (09:19)
[2021-04-15] MEDS: Pregabalin 50 MG CAP PO SCH ×3 (09:20→18:10)
[2021-04-15] MEDS ORDERED: ADENOSINE 60 MG/20 ML VIAL ONE (12:27)
[2021-04-15 15:33] LABS: #Eosinphils 0.1 thou/uL (0.0-0.7); #Lymphocytes 2.6 thou/uL (1.20-3.40); #Monocytes 0.5 thou/uL (0.11-0.59); #Neutrophils 2.9 thou/uL (1.40-6.50); %Basophils 0.4 % (0.0-1.0); %Lymphocytes 41.6 % (21.0-51.0); %Monocytes 8.4 % (0.0-10.0); %Neutrophils 47.7 % (42.0-75.0); Hemoglobin 14.5 g/dL (12.0-16.0); Mean Corpuscular HGB CONC 32.3 g/dL (32.0-36.0); Mean Corpuscular Hemoglobin 27.6 pg (27.0-31.0); Mean Corpuscular Volume 85.6 fL (78.0-98.0); Mean Platelet Volume 8.8 fL (7.4-10.4); Platelet Count 195 thou/uL (130-400); RBC Distribution Width 12.5 % (11.5-14.5); Red Blood Cell (RBC) Count 5.24 mill/uL (4.20-5.40); White Blood Cell (WBC) Count 6.1 thou/uL (4.8-10.8)
[2021-04-15 15:58] LABS: Anion Gap 15 mmol/L (10-20); BUN (Urea Nitrogen) 13 mg/dL (7.0-18.7); Calc. Creatinine Clearance 130 mL/min (70-130); Calcium 8.9 mg/dL (7.8-10.44); Carbon Dioxide 19 mmol/L (22-29); Chloride 102 mmol/L (98-107); Glucose 355 mg/dL (70-105); Magnesium 1.7 mg/dL (1.6-2.6); Potassium 4.6 mmol/L (3.5-5.1); Sodium 131 mmol/L (136-145)
[2021-04-15] MEDS ORDERED: Enoxaparin Sodium 40 MG/0.4 ML SYRINGE SC SCH (21:00)
[2021-04-15] MEDS: Lantus 1000 UNITS/10 ML VIAL SC SCH (21:02)
[2021-04-15] MEDS: Isosorbide Mononitrate 20 MG TAB PO SCH (21:04)
[2021-04-15] MEDS: Lorazepam 2 MG/ML VIAL SLOW IVP PRN (22:04)
[2021-04-16] MEDS: Morphine 4 MG/ML VIAL SLOW IVP PRN (00:29)
[2021-04-16] MEDS: HumaLOG 300 UNITS/3 ML VIAL SC PRN ×2 (06:13→11:35)
[2021-04-16 06:24] LABS: Anion Gap 14 mmol/L (10-20); BUN (Urea Nitrogen) 16 mg/dL (7.0-18.7); Calc. Creatinine Clearance 128 mL/min (70-130); Calcium 8.6 mg/dL (7.8-10.44); Carbon Dioxide 20 mmol/L (22-29); Chloride 104 mmol/L (98-107); Glucose 389 mg/dL (70-105); Magnesium 1.7 mg/dL (1.6-2.6); Sodium 133 mmol/L (136-145)
[2021-04-16 07:16] LABS: Hemoglobin 12.5 g/dL (12.0-16.0); Mean Corpuscular HGB CONC 33.2 g/dL (32.0-36.0); Mean Corpuscular Hemoglobin 27.7 pg (27.0-31.0); Mean Corpuscular Volume 83.5 fL (78.0-98.0); Mean Platelet Volume 8.8 fL (7.4-10.4); Platelet Count 192 thou/uL (130-400); RBC Distribution Width 12.3 % (11.5-14.5); Red Blood Cell (RBC) Count 4.49 mill/uL (4.20-5.40)
[2021-04-16 08:03] LABS: Band 1 % (5-11); Lymphocytes 43 % (21-51); MDiff Complete? YES; Monocytes 6 % (0-10); Neutrophil 49 % (42-75); Platelet Morphology Comment Appears Adequate
[2021-04-16] MEDS: Atorvastatin Calcium 10 MG TAB PO SCH (08:53)
[2021-04-16] MEDS: Aspirin Chewable 81 MG TAB PO SCH (08:53)
[2021-04-16] MEDS: Potassium Chloride 10 MEQ TAB PO SCH (08:54)
[2021-04-16] MEDS: Pregabalin 50 MG CAP PO SCH (08:54)
[2021-04-16] MEDS: Metoprolol Tartrate 50 MG TAB PO SCH (08:55)
[2021-04-16] MEDS ORDERED: Lantus 1000 UNITS/10 ML VIAL SC SCH (09:00)
[2021-04-16] MEDS ORDERED: Non-Formulary Item 1 EACH (Insulin Glargine,Hum.Rec.Anlog [Toujeo Max Solostar] 300 UNIT/ SQ SCH (09:00)
[2021-04-16 13:13] VITALS: BP 134/79; TEMP 98.3
== END 2021-04-16 13:20 | disposition home or self-care (01) | DRG 392 ==
LOC: ERS 10:00 → ERHOLD 12:48 → OBSVTOIN 12:48 → 2SW 16:34
PROVIDERS: ADMIT Internal Medicine; ATTEND Hospitalist
DX: K52.9 Noninfective gastroenteritis and colitis, unspecified (principal); E87.1 Hypo-osmolality and hyponatremia; R07.9 Chest pain, unspecified; I10 Essential (primary) hypertension; E78.5 Hyperlipidemia, unspecified; E11.9 Type 2 diabetes mellitus without complications; I48.0 Paroxysmal atrial fibrillation; E87.5 Hyperkalemia; E86.1 Hypovolemia; Z20.822 Contact with and (suspected) exposure to COVID-19; Z88.0 Allergy status to penicillin; Z79.82 Long term (current) use of aspirin; Z79.4 Long term (current) use of insulin; Z90.49 Acquired absence of other specified parts of digestive tract
CPT/HCPCS: 36415; 36416; 71045; 74177; 78452; 80048; 80053; 82010; 83690; 83735; 83880; 84443; 84484; 84703; 85025; 87635; 93005; 93017; 94760; 96374; A9500; G0378; J0153; J1650; J1815; J2060; J2270; J2550; Q9967; U0003; U0005

== ENCOUNTER 2022-10-30 14:28 | Emergency (ER) | payer BC, SELFPAY ==
[~2022-10-30 14:28] MED LIST changes: -ISOVUE-370 76%-LOCM 1 ML ONE; +Iopamidol-370 76% 500 ML 1 ML ONE
[2022-10-30 15:52] LABS: Bacteria/HPF None Seen HPF (None Seen); Bilirubin Negative (Negative); Blood, Urine Negative (Negative); Clarity Clear (Clear); Glucose, Urine (Dipstick) Greater than 1000 mg/dL (Negative); Ketone, Urine 10 mg/dL (Negative); Leukocyte Negative Leu/uL (Negative); Nitrite Negative (Negative); Protein, Urine (Dipstick) 30 mg/dL (Neg-Trace); RBC/HPF 0-3 HPF (0-3); Specific Gravity, Urine 1.038 (1.002-1.036); Squamous Epithelial 0-3 HPF (0-3); Urobilinogen Normal mg/dL (Less than 2); WBC/HPF 0-3 HPF (0-3); pH, Urine 5.5 (5.0-9.0)
[2022-10-30 16:51] LABS: #Eosinphils 0.1 thou/uL (0.0-0.7); #Lymphocytes 0.9 thou/uL (1.20-3.40); #Monocytes 0.4 thou/uL (0.11-0.59); #Neutrophils 6.1 thou/uL (1.40-6.50); %Basophils 0.2 % (0.0-1.0); %Eosinophils 0.8 % (0.0-10.0); %Lymphocytes 11.5 % (21.0-51.0); %Monocytes 5.1 % (0.0-10.0); %Neutrophils 82.4 % (42.0-75.0); Hemoglobin 14.8 g/dL (12.0-16.0); Mean Corpuscular HGB CONC 32.4 g/dL (32.0-36.0); Mean Corpuscular Hemoglobin 27.6 pg (27.0-31.0); Mean Corpuscular Volume 85.2 fl (78.0-98.0); Mean Platelet Volume 9.1 fL (7.4-10.4); Platelet Count 204 10x3/uL (130-400); RBC Distribution Width 12.3 % (11.5-14.5); Red Blood Cell (RBC) Count 5.35 mill/uL (4.20-5.40); White Blood Cell (WBC) Count 7.4 10x3/uL (4.8-10.8)
[2022-10-30 17:08] LABS: ALT (SGPT) 122 U/L (8-55); AST (SGOT) 117 U/L (5-34); Albumin 4.4 g/dL (3.5-5.0); Alkaline Phosphatase 148 U/L (40-110); Anion Gap 17 mmol/L (10-20); BUN (Urea Nitrogen) 15 mg/dL (7.0-18.7); Bilirubin, Total 0.6 mg/dL (0.2-1.2); Calc. Creatinine Clearance 0 mL/min (70-130); Calcium 9.3 mg/dL (7.8-10.44); Carbon Dioxide 22 mmol/L (22-29); Chloride 103 mmol/L (98-107); Estimated GFR 86; Globulin 3.1 g/dL (2.4-3.5); Glucose 303 mg/dL (70-105); Lipase 288 U/L (8-78); Potassium 4.4 mmol/L (3.5-5.1); Protein, Total 7.5 g/dL (6.0-8.3); Sodium 138 mmol/L (136-145)
[2022-10-30] MEDS ORDERED: diphenhydrAMINE 50 MG/ML VIAL ONE (17:25)
[2022-10-30] MEDS ORDERED: Morphine 4 MG/ML VIAL ONE ×2 (17:25→19:34)
== END 2022-10-30 19:42 | disposition home or self-care (01) ==
LOC: ERS 14:28
DX: R10.9 Unspecified abdominal pain (principal); E66.9 Obesity, unspecified; E11.40 Type 2 diabetes mellitus with diabetic neuropathy, unspecified; I50.9 Heart failure, unspecified; Z79.899 Other long term (current) drug therapy; Z79.4 Long term (current) use of insulin
CPT/HCPCS: 74177; 80053; 81003; 81015; 83690; 83880; 84484; 85025; 87804; 93005; 96374; 96375; 96376; J1200; J2270; Q9967

== ENCOUNTER 2024-06-09 17:49 | Inpatient (IN) | payer BC ==
[2024-06-09] MEDS ORDERED: Aspirin Chewable 81 MG TAB ONE (18:16)
[2024-06-09] MEDS ORDERED: Nitroglycerin 2% Ointment 1 INCH/1 GM Packet ONE (18:16)
[2024-06-09 18:17] LABS: #Basophils Less than 0.03 10x3/uL (0.0-0.2); %Basophils 0.3 % (0.0-1.0); %Eosinophils 1.5 % (0.0-10.0); %Lymphocytes 38.5 % (21.0-51.0); %Monocytes 9.7 % (0.0-10.0); %Neutrophils 49.8 % (42.0-75.0); Hematocrit 37.9 % (36.0-47.0); Hemoglobin 12.1 g/dL (12.0-16.0); Mean Corpuscular HGB CONC 31.9 g/dL (32.0-36.0); Mean Corpuscular Hemoglobin 25.6 pg (27.0-31.0); Mean Corpuscular Volume 80.3 fL (78.0-98.0); Mean Platelet Volume 10.8 fL (7.4-10.4); Platelet Count 242 10x3/uL (130-400); RBC Distribution Width 13.3 % (11.5-14.5); Red Blood Cell (RBC) Count 4.72 mill/uL (4.20-5.40)
[2024-06-09 18:32] LABS: Troponin I Less than 0.010 ng/mL (< 0.028)
[2024-06-09 18:38] LABS: ALT (SGPT) 57 U/L (8-55); AST (SGOT) 29 U/L (5-34); Albumin 3.5 g/dL (3.5-5.0); Alkaline Phosphatase 131 U/L (40-110); Anion Gap 13 mmol/L (10-20); BUN (Urea Nitrogen) 12 mg/dL (9.8-20.1); Bilirubin, Total 0.2 mg/dL (0.2-1.2); Calc. Creatinine Clearance 0 mL/min (70-130); Carbon Dioxide 28 mmol/L (22-29); Chloride 102 mmol/L (98-107); Estimated GFR 81; Globulin 3.4 g/dL (2.4-3.5); Glucose 295 mg/dL (70-105); Potassium 3.2 mmol/L (3.5-5.1); Protein, Total 6.9 g/dL (6.0-8.3); Sodium 140 mmol/L (136-145)
[2024-06-09] MEDS ORDERED: Morphine 4 MG/ML VIAL ONE (19:09)
[2024-06-09] MEDS ORDERED: diphenhydrAMINE 25 MG CAP ONE (19:17)
[2024-06-09] MEDS ORDERED: Nitroglycerin 0.4 MG TAB (25 Tab Bottle) SL PRN (19:26)
[2024-06-09 19:46] LABS: Magnesium 1.7 mg/dL (1.6-2.6)
[2024-06-09] MEDS ORDERED: Potassium Chloride 20 MEQ TAB ONE (19:48)
[2024-06-09] MEDS ORDERED: Electrolyte Replacement Protocol FS SCH (20:30)
[2024-06-09] MEDS ORDERED: hydrALAZINE 20 MG/ML VIAL SLOW IVP PRN (21:13)
[2024-06-09] MEDS ORDERED: Labetalol HCl 100 MG/20 ML VIAL SLOW IVP PRN (21:13)
[2024-06-09 22:48] LABS: Troponin I Less than 0.010 ng/mL (< 0.028)
[2024-06-09] MEDS ORDERED: traMADol HCl 50 MG TAB PO PRN (22:53)
[2024-06-09] MEDS ORDERED: Morphine 2 MG/ML VIAL ONE (23:54)
[2024-06-09] MEDS ORDERED: Magnesium 2 GM/50 ML BAG (IN WATER) ONE (23:54)
[2024-06-09] MEDS ORDERED: Famotidine 20 MG TAB ONE (23:55)
[2024-06-09] MEDS: Morphine 2 MG/ML VIAL SLOW IVP SCH (23:57)
[2024-06-09] MEDS: Famotidine 20 MG TAB PO SCH (23:57)
[2024-06-09] MEDS: Magnesium 2 GM/50 ML(in water) 2 GM in Premix 1 BAG IVPB SCH (23:57)
[2024-06-10 03:41] LABS: #Basophils Less than 0.03 10x3/uL (0.0-0.2); %Basophils 0.2 % (0.0-1.0); %Eosinophils 1.6 % (0.0-10.0); %Lymphocytes 44.3 % (21.0-51.0); %Monocytes 10.1 % (0.0-10.0); %Neutrophils 43.4 % (42.0-75.0); Hematocrit 35.9 % (36.0-47.0); Hemoglobin 11.2 g/dL (12.0-16.0); Mean Corpuscular HGB CONC 31.2 g/dL (32.0-36.0); Mean Corpuscular Hemoglobin 25.1 pg (27.0-31.0); Mean Corpuscular Volume 80.3 fL (78.0-98.0); Platelet Count 241 10x3/uL (130-400); RBC Distribution Width 13.7 % (11.5-14.5); Red Blood Cell (RBC) Count 4.47 mill/uL (4.20-5.40)
[2024-06-10 04:05] LABS: Hemoglobin A1c 12.7 % (4.0-6.0)
[2024-06-10 04:08] LABS: Anion Gap 16 mmol/L (10-20); BUN (Urea Nitrogen) 13 mg/dL (9.8-20.1); Calc. Creatinine Clearance 0 mL/min (70-130); Calcium 8.7 mg/dL (7.8-10.44); Carbon Dioxide 26 mmol/L (22-29); Chloride 100 mmol/L (98-107); Cholesterol 135 mg/dl (< 200 Desired); Estimated GFR 82; Glucose 329 mg/dL (70-105); HDL Cholesterol 27 mg/dL (>60 Neg Risk); LDL Cholesterol, Calculated 75 mg/dL; Potassium 3.5 mmol/L (3.5-5.1); Sodium 138 mmol/L (136-145); Triglycerides 165 mg/dL (Less than 150)
[2024-06-10 04:16] LABS: Troponin I Less than 0.010 ng/mL (< 0.028)
[2024-06-10] MEDS ORDERED: Acetaminophen 325 MG TAB ONE (04:57)
[2024-06-10] MEDS: Acetaminophen 650 MG Suppository PR PRN (05:00)
[2024-06-10 05:31] VITALS: BMI 37.5
[2024-06-10] MEDS ORDERED: Nitroglycerin 2% Ointment 1 INCH/1 GM Packet ONE (06:47)
[2024-06-10] MEDS ORDERED: Potassium Chloride 20 MEQ TAB ONE (08:19)
[2024-06-10] MEDS ORDERED: Aspirin Chewable 81 MG TAB ONE (08:19)
[2024-06-10] MEDS ORDERED: Famotidine 20 MG TAB ONE (08:19)
[2024-06-10] MEDS: Potassium Chloride 20 MEQ TAB PO SCH (08:25)
[2024-06-10] MEDS: Aspirin Chewable 81 MG TAB PO SCH (08:25)
[2024-06-10] MEDS ORDERED: Aspirin 81 mg Enteric Coated Tablet PO SCH (09:00)
[2024-06-10] MEDS: Nitroglycerin 2% Ointment 1 INCH/1 GM Packet TOP SCH (09:36)
[2024-06-10] MEDS ORDERED: Regadenoson 0.4 MG/5 ML SYRINGE ONE (11:40)
[2024-06-10] MEDS ORDERED: ADENOSINE 60 MG/20 ML SDV ONE (11:41)
[2024-06-10] MEDS: Acetaminophen 325 MG TAB PO PRN (16:23)
[2024-06-10] MEDS: Fioricet 325/50/40 mg Tablet PO PRN (17:28)
[2024-06-10 19:56] LABS: Magnesium 2.2 mg/dL (1.6-2.6); Potassium 4.3 mmol/L (3.5-5.1)
[2024-06-10] MEDS: Atorvastatin Calcium 40 MG TAB PO SCH (22:19)
[2024-06-10] MEDS: Pregabalin 50 MG CAP PO SCH ×2 (22:19→22:59)
[2024-06-10] MEDS: Insulin Glargine 30 UNITS/0.3 ML VIAL SC SCH (22:20)
[2024-06-10] MEDS ORDERED: Ketorolac Tromethamine 30 MG (1 mL) VIAL IVP SCH (22:45)
[2024-06-10] MEDS: Ibuprofen 200 MG TAB PO PRN (22:59)
[2024-06-11] MEDS: SUMAtriptan Succinate 6 MG/0.5 ML VIAL SC SCH (02:40)
[2024-06-11] MEDS: Morphine 2 MG/ML VIAL ONE (03:16)
[2024-06-11] MEDS: Morphine 2 MG/ML VIAL SLOW IVP SCH (05:46)
[2024-06-11] MEDS: Pregabalin 50 MG CAP PO SCH (09:00)
[2024-06-11 10:51] LABS: #Basophils Less than 0.03 10x3/uL (0.0-0.2); %Basophils 0.2 % (0.0-1.0); %Eosinophils 2.5 % (0.0-10.0); %Lymphocytes 44.8 % (21.0-51.0); %Monocytes 10.4 % (0.0-10.0); %Neutrophils 41.6 % (42.0-75.0); Hematocrit 36.1 % (36.0-47.0); Hemoglobin 11.2 g/dL (12.0-16.0); Mean Corpuscular Hemoglobin 25.9 pg (27.0-31.0); Mean Corpuscular Volume 83.6 fL (78.0-98.0); Mean Platelet Volume 10.7 fL (7.4-10.4); Platelet Count 210 10x3/uL (130-400); RBC Distribution Width 13.8 % (11.5-14.5); Red Blood Cell (RBC) Count 4.32 mill/uL (4.20-5.40)
[2024-06-11 11:23] LABS: Anion Gap 12 mmol/L (10-20); BUN (Urea Nitrogen) 16 mg/dL (9.8-20.1); Calc. Creatinine Clearance 141 mL/min (70-130); Calcium 9.1 mg/dL (7.8-10.44); Carbon Dioxide 24 mmol/L (22-29); Chloride 107 mmol/L (98-107); Estimated GFR 98; Glucose 285 mg/dL (70-105); Potassium 4.4 mmol/L (3.5-5.1); Sodium 139 mmol/L (136-145)
[2024-06-11] MEDS ORDERED: Lorazepam 2 MG/ML VIAL SLOW IVP SCH (13:00)
[2024-06-11] MEDS: Insulin Lispro 100 UNIT/ML 10 ML VIAL SC SCH (13:10)
[2024-06-11] MEDS: Ranolazine ER 500 MG TAB PO SCH (13:11)
[2024-06-11] MEDS: Atorvastatin Calcium 10 MG TAB PO SCH (13:11)
[2024-06-11] MEDS: Insulin Glargine 30 UNITS/0.3 ML VIAL SC SCH (13:11)
[2024-06-11] MEDS: Morphine 2 MG/ML VIAL SLOW IVP PRN (18:34)
[2024-06-12 04:58] LABS: #Basophils Less than 0.03 10x3/uL (0.0-0.2); %Basophils 0.4 % (0.0-1.0); %Eosinophils 2.3 % (0.0-10.0); %Lymphocytes 39.4 % (21.0-51.0); %Monocytes 9.5 % (0.0-10.0); %Neutrophils 48.2 % (42.0-75.0); Hemoglobin 11.3 g/dL (12.0-16.0); Mean Corpuscular HGB CONC 31.4 g/dL (32.0-36.0); Mean Corpuscular Hemoglobin 26.2 pg (27.0-31.0); Mean Corpuscular Volume 83.5 fL (78.0-98.0); Mean Platelet Volume 11.1 fL (7.4-10.4); Platelet Count 233 10x3/uL (130-400); Red Blood Cell (RBC) Count 4.31 mill/uL (4.20-5.40)
[2024-06-12 05:18] LABS: Anion Gap 12 mmol/L (10-20); BUN (Urea Nitrogen) 15 mg/dL (9.8-20.1); Calc. Creatinine Clearance 113 mL/min (70-130); Calcium 8.8 mg/dL (7.8-10.44); Carbon Dioxide 25 mmol/L (22-29); Chloride 103 mmol/L (98-107); Estimated GFR 74; Glucose 311 mg/dL (70-105); Potassium 3.8 mmol/L (3.5-5.1); Sodium 136 mmol/L (136-145)
[2024-06-12] MEDS: Lisinopril 10 MG TAB PO SCH (09:26)
[2024-06-12] MEDS: Empagliflozin 10 MG TAB PO SCH (09:26)
[2024-06-12] MEDS: Lorazepam 2 MG/ML VIAL SLOW IVP SCH (14:04)
[2024-06-13 04:52] LABS: #Basophils 0.03 10x3/uL (0.0-0.2); %Basophils 0.5 % (0.0-1.0); %Eosinophils 2.3 % (0.0-10.0); %Lymphocytes 42.8 % (21.0-51.0); Hematocrit 38.6 % (36.0-47.0); Hemoglobin 11.8 g/dL (12.0-16.0); Mean Corpuscular HGB CONC 30.6 g/dL (32.0-36.0); Mean Corpuscular Hemoglobin 25.2 pg (27.0-31.0); Mean Corpuscular Volume 82.5 fL (78.0-98.0); Mean Platelet Volume 10.9 fL (7.4-10.4); Platelet Count 231 10x3/uL (130-400); RBC Distribution Width 14.2 % (11.5-14.5); Red Blood Cell (RBC) Count 4.68 mill/uL (4.20-5.40)
[2024-06-13 05:13] LABS: Anion Gap 13 mmol/L (10-20); BUN (Urea Nitrogen) 18 mg/dL (9.8-20.1); Calc. Creatinine Clearance 121 mL/min (70-130); Calcium 9.6 mg/dL (7.8-10.44); Carbon Dioxide 26 mmol/L (22-29); Chloride 106 mmol/L (98-107); Estimated GFR 81; Glucose 243 mg/dL (70-105); Potassium 4.1 mmol/L (3.5-5.1); Sodium 141 mmol/L (136-145)
[2024-06-13 09:00] VITALS: TEMP 97.3
[2024-06-13 09:09] VITALS: BP 120/84
== END 2024-06-13 12:10 | disposition home or self-care (01) | DRG 313 ==
LOC: ERS 17:49 → ERHOLD 19:26 → 2SW 19:33 → OBSVTOIN 06-11 16:16
PROVIDERS: ADMIT Student in an Organized Health Care Education/Training Program; ATTEND Family Medicine
DX: R07.89 Other chest pain (principal); I50.22 Chronic systolic (congestive) heart failure; I11.0 Hypertensive heart disease with heart failure; R29.898 Other symptoms and signs involving the musculoskeletal system; E87.6 Hypokalemia; I48.0 Paroxysmal atrial fibrillation; E11.65 Type 2 diabetes mellitus with hyperglycemia; E11.40 Type 2 diabetes mellitus with diabetic neuropathy, unspecified; G47.33 Obstructive sleep apnea (adult) (pediatric); E78.5 Hyperlipidemia, unspecified; Z88.0 Allergy status to penicillin; Z88.5 Allergy status to narcotic agent; Z88.8 Allergy status to other drugs, medicaments and biological substances; Z79.899 Other long term (current) drug therapy; Z79.82 Long term (current) use of aspirin; Z90.49 Acquired absence of other specified parts of digestive tract; Z98.891 History of uterine scar from previous surgery
CPT/HCPCS: 36415; 36416; 70450; 70551; 71045; 78452; 80048; 80053; 80061; 83036; 83735; 83880; 84443; 84484; 85025; 93005; 93017; 93306; 94760; 96374; A9502; J0153; J1815; J2060; J2270; J2272; J2785; J3030; J3475